=== PATIENT | male | born 1985 ===

== ENCOUNTER 2020-01-14 17:37 | Emergency (ER) | payer OTHER ==
--- NOTE | 2020-01-14 19:22 | UC ---
Shortness of Breath HPI - HPI Summary HPI Summary: Mr. Moss presents complaining that at the beginning of November he developed a sore throat. He went to [facility] and they recommended symptomatic treatment. Sore throat improved after a few days and he felt better but then he began to develop a cough. He again went to [facility] and they gave him an antibiotic prescription which sounds consistent with a Z-Ganesh. He did begin to improve and felt better for a few days after finishing the antibiotics. Then he developed an unusual feeling in his chest causing him to feel somewhat short of breath. He again went to [facility] where they tested him for SARS -CoV-2 virus and tested negative. That sounds to me like that was in the first week in December. Since that time his symptoms have continued and he has become perhaps slightly more short of breath but certainly more anxious. He admits to a cough but states that it's not very bad and does not cough a single time here. He has had no fevers. - History of Current Complaint Chief Complaint: UCRespiratory Stated Complaint: RESP COMPLAINT Time Seen by Provider: 01/14/20 18:01 Hx Obtained From: Patient Onset/Duration: Gradual Onset, Lasting Weeks Timing: Constant Current Severity: Mild Dyspnea At: Exertion Aggravating Factors: Nothing Alleviating Factors: Nothing Associated Signs & Symptoms: Positive: Cough (Nonproductive) - Allergy/Home Medications Allergies/Adverse Reactions: Allergies Allergy/AdvReac Type Severity Reaction Status Date / Time No Known Allergies Allergy Verified 01/14/20 17:51 Home Medications: Home Medications NK [No Home Medications Reported] 01/14/20 [History Confirmed 01/14/20] PMH/Surg Hx/FS Hx/Imm Hx - Additional Past Medical History Additional PMH: 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 It has been at least 10 years since he had any problem. He normally gets his BUN and creatinine checked at his PCP but [place] - Surgical History Surgical History: None - Social History Alcohol Use: None Substance Use Type: None Smoking Status (MU): Never Smoked Tobacco Review of Systems All Other Systems Reviewed And Are Negative: Yes Constitutional: Positive: Negative Skin: Positive: Negative ENT: Positive: Sore Throat Respiratory: Positive: Shortness Of Breath, Cough Cardiovascular: Positive: Negative Gastrointestinal: Positive: Negative Genitourinary: Positive: Negative Motor: Positive: Negative Musculoskeletal: Positive: Negative Neurological/Mental Status: Positive: Negative Is Patient Immunocompromised?: No Physical Exam - Summary Physical Exam Summary: He is nontoxic in appearance with stable vitals. Triage Information Reviewed: Yes Appearance: Well-Appearing, No Pain Distress, Well-Nourished Vital Signs: Initial Vital Signs Temp 98.0 F 01/14/20 17:48 Pulse 69 01/14/20 17:48 Resp 18 01/14/20 17:48 BP 121/75 01/14/20 17:48 Pulse Ox 98 01/14/20 17:48 Vital Signs Reviewed: Yes ENT Exam: Normal Neck exam: Normal Respiratory Exam: Normal Respiratory: Positive: Chest non-tender, Lungs clear, Normal breath sounds, No respiratory distress, No accessory muscle use Cardiovascular Exam: Normal Abdominal Exam: Normal Diagnostics - Radiology CXR Pa/Lat Radiology Interpretation Completed By: ED Physician Summary of Radiographic Findings: No Acute Process Shortness of Breath Dx - Course Course Of Treatment: The etiology of his symptoms is unclear to me. I hear no wheezes and his chest x-ray looks unremarkable to me. I cannot completely rule out COVID 19. He had a negative test a month ago and I offered him another test which he declined. I discussed the possibility of using an albuterol inhaler for a couple of days in case this is related to her post-bronchitis inflammation and bronchospasm. He also declined. He seems quite anxious and I recommended we send blood tests for reassurance that his kidney function is okay as he is concerned about that. I recommended continued isolation and follow-up with [facility]. I recommended immediately going to the emergency department or call an ambulance if he feels acutely short of breath. - Differential Dx/Diagnosis Provider Diagnosis: Dyspnea Discharge ED - Sign-Out/Discharge Documenting (check all that apply): Patient Departure All imaging exams completed and their final reports reviewed: Yes - Discharge Plan Condition: Stable Disposition: HOME Patient Education Materials: Shortness of Breath (ED) Forms: COVID-19 Eval & Not Tested Referrals: No Primary Care Phys,NOPCP [Primary Care Provider] - - Billing Disposition and Condition Condition: STABLE Disposition: Home
[2020-01-15 15:09] LABS: ABS Eosinophils 0.1 10^3/ul (0-0.6); ABS Lymphocytes 1.7 10^3/ul (1.0-4.8); ABS Monocytes 0.4 10^3/ul (0-0.8); ABS Neutrophils 3.9 10^3/ul (1.5-7.7); Eosinophil % 1.9 %; Hematocrit 44 % (42-52); Hemoglobin 15.3 g/dL (14.0-18.0); Lymphocyte % 27.3 %; Mean Corpuscular HGB Conc 35 g/dL (31-36); Mean Corpuscular Hemoglobin 30 pg (27-31); Mean Corpuscular Volume 86 fL (80-94); Mean Platelet Volume 9.1 fL (7.4-10.4); Nucleated Red Blood Cells % 0.1; Platelet Count 168 10^3/uL (150-450); Red Blood Count 5.13 10^6 /uL (4.18-5.48); Red Cell Distribution Width 13 % (10-15); White Blood Count 6.1 10^3/uL (3.5-10.8)
[2020-01-15 15:13] LABS: Albumin 4.6 g/dL (3.2-5.2); Calcium 9.6 mg/dL (8.6-10.3); Potassium 4.2 mmol/L (3.5-5.0); Total Bilirubin 0.5 mg/dL (0.2-1.0)
[2020-01-15 15:19] LABS: Albumin/Globulin Ratio 1.7 (1-3); BUN/Creatinine Ratio 14.1 (8-20); EGFR Non-African American 94.2 (>60); Globulin 2.7 g/dL (2-4); Total Protein 7.3 g/dL (6.4-8.9)
== END 2020-01-14 19:55 | disposition home or self-care (01) ==
LOC: UCEAST 17:37
DX: R06.00 Dyspnea, unspecified (principal); R05 Cough
CPT/HCPCS: 36415; 71046; 80053; 85025; 85379; 99201; G0463